=== PATIENT | male | born 1950 | race African-American/Black ===

== ENCOUNTER → 2018-02-10 | Outpatient (CLI) | payer OTHER ==
[~2018-02-10] MED LIST: COZAAR 25 MG TA25 M1 PO; MAGOX 400400 MG PO; NORVASC2.5 MG PO
--- NOTE | ~2018-02-10 | EKG ---
[address] [address] ELECTROCARDIOGRAM REPORT Name: DI FOSTER Room #: [facility] CenterMikey[facility] [id number] Admission: 02/10/18 Attend Phys: Gary Bernal MD Discharge: Date of : 52 Report #: [id number] THIS REPORT FOR: //name// [facility] Test Date: 2018-02-10 Test Time: 06:55:26 Pat Name: DI FOSTER Department: Room: Gender: [employer] Machine Operator: velma : 1950 Requested By: Gary Bernal Order Number: [id number] MD: Rajesh Modi Measurements Intervals [place] Rate: 86 P: 71 NM: 136 QRS: 47 QRSD: 99 T: 27 QT: 350 QTc: 419 Interpretive Statements Sinus rhythm No significant abnormality No previous ECG available for comparison Electronically Signed On 02-10-2018 8:40:49 BUCKET PUSHER by Rajesh Modi [email or web address] <ELECTRONICALLY SIGNED> By: Rajesh Modi MD, [facility] 02/10/18 [id number] Rajesh Modi MD, FAC /EPI
== END | disposition home or self-care (01) ==
LOC: LITH 06:16
DX: N20.1 Calculus of ureter (principal); I10 Essential (primary) hypertension; F32.9 Major depressive disorder, single episode, unspecified; F41.9 Anxiety disorder, unspecified; Z79.899 Other long term (current) drug therapy